=== PATIENT | male | born 1980 | race Caucasian/White ===

== ENCOUNTER 2021-07-18 18:59 | Emergency (ER) | payer OTHER ==
[~2021-07-18] VITALS: Ht 182.9 cm; Wt 86.0 kg
[2021-07-18 19:18] VITALS: BP 159/113
--- NOTE | 2021-07-18 20:10 | PHYS DOC ---
Past History Past Surgical History: No Surgical History General Adult EDM: Chief Complaint: MULTIPLE COMPLAINTS HPI: HPI: ".. I was out of service for a while.. and now I am back.. and not used to PT... I hurt all over...".. " I almost feel like I got the flu.. because I hurt all over.. because of all the PT" Patient is a 40 year old male who presents with above hx and complaints generalized myalgia and arthralgia from physical training. 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 Resumed his service on April 12. 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 Patient reports physical training has been more demanding on him and is not used to the workouts. Patient is up-to-date with his Covid vaccination as of 04/15/2001. Patient denies any recent trauma. Patient denies any significant ill contacts. Patient denies any history immunosuppression. . Review of Systems: Review of Systems: Constitutional: Denies fever or chills Eyes: Denies change in visual acuity HENT: Denies nasal congestion or sore throat Respiratory: Denies cough or shortness of breath Cardiovascular: Denies chest pain or edema GI: Denies abdominal pain, nausea, vomiting, bloody stools or diarrhea : Denies dysuria Musculoskeletal: Complains of generalized muscle soreness and joint discomfort Integument: Denies rash Neurologic: Denies headache, focal weakness or sensory changes Endocrine: Denies polyuria or polydipsia Lymphatic: Denies swollen glands Psychiatric: Denies depression or anxiety Family History: Family History: Noncontributory to presentation Current Medications: Current Meds: See nursing for home meds Allergies: Allergies: No known drug allergies Physical Exam: PE: Constitutional: Well developed, well nourished, moderate acute distress, non- toxic appearance. [] HENT: Normocephalic, atraumatic, bilateral external ears normal, oropharynx moist, no oral exudates, nose normal. [] Eyes: PERRLA, EOMI, conjunctiva normal, no discharge. [] Neck: Normal range of motion, no tenderness, supple, no stridor. [] Cardiovascular:Heart rate regular rhythm, no murmur [] Lungs & Thorax: Bilateral breath sounds equal apex on auscultation [] Abdomen: Bowel sounds normal, soft, no tenderness, no masses, no pulsatile masses. [] Skin: Warm, dry, no erythema, no rash. Tattoos Back: No tenderness, no CVA tenderness. [] Extremities: Generalized muscle tenderness, no cyanosis, no clubbing, ROM intact, no edema. No cording noted in legs. Neurologic: Alert and oriented X 3, normal motor function, normal sensory function, no focal deficits noted. [] Psychologic: Affect normal, judgement normal, mood normal. [] Current Patient Data: Labs: Note labs are not crossing over-my review of significant labs shows normal electrolytes. Normal CBC, mild elevation in ALT at 67. Negative COVID screen and flu screen. Normal troponin 0.017 Vital Signs: Vital Signs Date Time Temp Pulse Resp B/P (MAP) Pulse Ox O2 Delivery O2 Flow Rate FiO2 07/18/21 19:18 98.3 70 20 159/113 (128) 98 Room Air EKG: EKG: My interpretation EKG shows a sinus rhythm rate of 65. No acute morphology time of EKG is 2108 hrs. [] Radiology/Procedures: Radiology/Procedures: [] Heart Score: C/O Chest Pain: N/A HEART Score for Chest Pain: HEART Score for Chest Pain Response (Comments) Value History Slighlty/Non-Suspicious 0 ECG Normal 0 Age < 45 0 Risk Factors No Risk Factors 0 Troponin < Normal Limit 0 Total 0 Risk Factors: Risk Factors: DM, Current or recent (<one month) smoker, HTN, HLP, family history of CAD, obesity. Risk Scores: Score 0 - 3: 2.5% MACE over next 6 weeks - Discharge Home Score 4 - 6: 20.3% MACE over next 6 weeks - Admit for Clinical Observation Score 7 - 10: 72.7% MACE over next 6 weeks - Early Invasive Strategies Course & Med Decision Making: Course & Med Decision Making Pertinent Labs and Imaging studies reviewed. (See chart for details) Patient push fluids. Patient take Tylenol and ibuprofen for discomfort. Patient follow-up. Patient declined to produce urine for evaluation. Requesting discharge. Reported marked improvement in symptoms after fluid bolus. Patient to follow-up with Bri. Patient return with any concerns. Laying given until COVID test results are available to be reviewed. Patient to follow-up elevated blood pressure readings on this visit with primary care. Impression: 1. Generalized arthralgia myalgia secondary Over Use/decreased conditioning 2. Mild dehydration 3. Mild elevation of ALt 67 4. Elevated BP [] Dragon Disclaimer: Dragon Disclaimer: This electronic medical record was generated, in whole or in part, using a voice recognition dictation system. Departure Departure: Referrals: PCP,NO (PCP) Amparo Disclaimer This chart was dictated in whole or in part using Voice Recognition software in a busy, high-work load, and often noisy Emergency Department environment. It may contain unintended and wholly unrecognized errors or omissions. ANSHU KATZ MD Jul 18, 2021 20:10
[2021-07-18] MEDS ORDERED: IV RINGERS SOLUTION,LACTATED 1,000 ML IV SCH (21:15)
[2021-07-18] MEDS ORDERED: KETOROLAC 30 MG/ML VIAL. IVP ONE (21:15)
--- NOTE | 2021-07-18 21:27 | EKG ---
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
[2021-07-18 21:29] LABS: BASO % 1 % (0-3); EOS # 0.1 x10^3/uL (0.0-0.7); EOS % 1 % (0-3); HEMATOCRIT 43.2 % (39.0-53.0); HEMOGLOBIN 14.5 g/dL (13.0-17.5); LYMPH # 2.2 x10^3/uL (1.0-4.8); LYMPH % 32 % (24-48); MEAN CORPUSCULAR HEMOGLOBIN 32 pg (25-35); MEAN CORPUSCULAR HGB CONC 34 g/dL (31-37); MEAN CORPUSCULAR VOLUME 94 fL (79-100); MONO # 0.6 x10^3/uL (0.0-1.1); MONO % 9 % (0-9); NEUT # 3.9 x10^3uL (1.8-7.7); NEUT % 57 % (31-73); PLATELET COUNT 342 x10^3/uL (140-400); RED CELL DISTRIBUTION WIDTH 13.8 % (11.5-14.5); WHITE BLOOD COUNT 6.8 x10^3/uL (4.0-11.0)
[2021-07-18 21:36] LABS: GFR 83.6; POTASSIUM 3.6 mmol/L (3.5-5.1)
[2021-07-18 21:46] LABS: INFLUENZA A PATIENT NEGATIVE (NEGATIVE); INFLUENZA B PATIENT NEGATIVE (NEGATIVE)
[2021-07-18 21:47] LABS: DIRECT BILIRUBIN 0.1 mg/dL (0.0-0.2); MAGNESIUM 2.3 mg/dL (1.8-2.4); TOTAL BILIRUBIN 0.4 mg/dL (0.2-1.0); TOTAL PROTEIN 7.5 g/dL (6.4-8.2)
--- NOTE | 2021-07-19 08:51 | NUR ---
IP: Attempted to notify patient of negative COVID19 test result. Unable to leave voicemail message due to voicemail box not setup at this time.
--- NOTE | 2021-07-19 16:26 | NUR ---
IP: Patient notified of negative COVID19 test result. Verbalized understanding.
== END 2021-07-18 22:32 | disposition home or self-care (01) ==
LOC: ER 18:59
DX: E86.0 Dehydration (principal); R79.89 Other specified abnormal findings of blood chemistry; R03.0 Elevated blood-pressure reading, without diagnosis of hypertension; M79.10 Myalgia, unspecified site; M25.50 Pain in unspecified joint; Z20.822 Contact with and (suspected) exposure to COVID-19
CPT/HCPCS: 80048; 80076; 82550; 83735; 83880; 84484; 85025; 87804; 93005; 96361; 96374; 99284; C9803; J1885; J7120; U0003

== ENCOUNTER 2022-01-11 13:36 | Emergency (ER) | payer OTHER ==
[~2022-01-11] VITALS: Ht 182.9 cm; Wt 96.5 kg
[2022-01-11 13:40] VITALS: BP 163/92
--- NOTE | 2022-01-11 14:13 | RAD ---
Single view of the chest. 01/11/2022 1:59 PM Indication: Chest pain Comparison: None Findings: There is no focal consolidation. There is no pleural effusion or pneumothorax. The cardiome diastinal silhouette and pulmonary vasculature are within normal limits. No acute osseous abnormaliti es are seen. Impression: No evidence of acute cardiopulmonary process. Electronically signed by: Shayne Nova MD (01/11/2022 2:11 PM) [id number]
[2022-01-11 14:28] LABS: BASO % 0 % (0-3); EOS # 0.1 x10^3/uL (0.0-0.7); EOS % 2 % (0-3); HEMATOCRIT 40.4 % (39.0-53.0); HEMOGLOBIN 13.9 g/dL (13.0-17.5); LYMPH # 1.3 x10^3/uL (1.0-4.8); LYMPH % 31 % (24-48); MEAN CORPUSCULAR HEMOGLOBIN 31 pg (25-35); MEAN CORPUSCULAR HGB CONC 34 g/dL (31-37); MEAN CORPUSCULAR VOLUME 91 fL (79-100); MONO # 0.3 x10^3/uL (0.0-1.1); MONO % 7 % (0-9); NEUT # 2.6 x10^3uL (1.8-7.7); NEUT % 60 % (31-73); PLATELET COUNT 229 x10^3/uL (140-400); RED BLOOD COUNT 4.42 x10^6/uL (4.30-5.70); RED CELL DISTRIBUTION WIDTH 12.9 % (11.5-14.5); WHITE BLOOD COUNT 4.3 x10^3/uL (4.0-11.0)
[2022-01-11 14:37] LABS: CALCIUM 8.7 mg/dL (8.5-10.1); CREATININE 0.9 mg/dL (0.7-1.3); GFR 93.9; POTASSIUM 3.7 mmol/L (3.5-5.1)
[2022-01-11 14:39] LABS: BARBITURATES NEG (NEG); BENZODIAZEPINES NEG (NEG); CANNABINOIDS NEG (NEG); COCAINE NEG (NEG); METHADONE NEG (NEG); OPIATES NEG (NEG); PHENCYCLIDINE NEG (NEG)
[2022-01-11 14:43] LABS: ALBUMIN/GLOBULIN RATIO 1.3 (1.0-1.7); MAGNESIUM 2.1 mg/dL (1.8-2.4); TOTAL BILIRUBIN 0.6 mg/dL (0.2-1.0); TOTAL PROTEIN 7.1 g/dL (6.4-8.2)
--- NOTE | 2022-01-11 14:44 | PHYS DOC ---
Past History Past Medical History: No Pertinent History (NANI SEGOVIA) Past Surgical History: No Surgical History (NANI SEGOVIA) Smoking: Non-smoker, Quit Greater Than 1 Year Alcohol Use: None Drug Use: None (NANI SEGOVIA) General Adult EDM: Chief Complaint: CHEST PAIN HPI: HPI: Patient is a 41 year old male who presents with left-sided low chest/abdominal pain. 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 Patient states he has been working a lot recently and his superiors are "on his ass" about meeting recruitment quotas each quarter. Patient states it has been extremely difficult to sign up new recruits for the [employer] recently in light of social and political events. Recently, he had 1 day off in a period of 15 days. Patient was seen in urgent care just prior to presenting here in the emergency department. Between his urgent care visit and presenting here, he states he drank a [employer] energy drink. Patient is a former smoker, but has not had any tobacco-containing products or alcohol in several years. Patient denies other associated complaints including diaphoresis, lightheadedness, shortness of breath, cough, nausea/vomiting. (NANI SEGOVIA) Review of Systems: Review of Systems: Constitutional: Denies fever, chills or generalized weakness Eyes: Denies change in visual acuity, visual field deficits or discharge HENT: Denies ear pain, nasal congestion or sore throat Respiratory: Denies cough or shortness of breath Cardiovascular: See HPI GI: See HPI : Denies dysuria or hematuria Musculoskeletal: Denies back pain or joint pain Integument: Denies rash or other skin lesion Neurologic: Denies headache, focal weakness or sensory changes (NANI SEGOVIA) Allergies: Allergies: Allergies Coded Allergies Type Severity Reaction Last Updated Verified No Known Drug Allergies 01/11/22 No (NANI SEGOVIA) Physical Exam: PE: Constitutional: Well developed, well nourished, no acute distress, non-toxic appearance. HENT: Normocephalic, atraumatic, bilateral external ears normal, nose normal. Eyes: EOMI, conjunctiva normal, no discharge. Neck: Normal range of motion, no stridor. Cardiovascular: Heart regular rate and rhythm. No murmurs, rubs or gallops. Lungs & Thorax: Equal thoracic expansion, no chest wall tenderness or crepitus, bilateral breath sounds clear to auscultation. Skin: Warm, dry, no erythema, no rash. Extremities: No cyanosis, no clubbing, ROM intact, no edema. Neurologic: Alert and oriented x4, no focal deficits noted. (NANI SEGOVIA) EKG: EKG: EKG Interpreted by Dr. Peng at 1354: Regular rate and rhythm 81 bpm with no ectopic beats. QT 354 ms/QTc 416 ms. No STEMI. (NANI SEGOVIA) Radiology/Procedures: Radiology/Procedures: PROCEDURE: CHEST AP ONLY Single view of the chest. 01/11/2022 1:59 PM Indication: Chest pain Comparison: None Findings: There is no focal consolidation. There is no pleural effusion or pneumothorax. The cardiomediastinal silhouette and pulmonary vasculature are wit hin normal limits. No acute osseous abnormalities are seen. Impression: No evidence of acute cardiopulmonary process. Electronically signed by: Shayne Nova MD (01/11/2022 2:11 PM) [id number] (NANI SEGOVIA) Heart Score: C/O Chest Pain: Yes HEART Score for Chest Pain: HEART Score for Chest Pain Response (Comments) Value History Slighlty/Non-Suspicious 0 ECG Normal 0 Age < 45 0 Risk Factors No Risk Factors 0 Troponin < Normal Limit 0 Total 0 Risk Factors: Risk Factors: none Risk Scores: Score 0 - 3: 2.5% MACE over next 6 weeks - Discharge Home Score 4 - 6: 20.3% MACE over next 6 weeks - Admit for Clinical Observation Score 7 - 10: 72.7% MACE over next 6 weeks - Early Invasive Strategies (NANI SEGOVIA) Course & Med Decision Making: Course & Med Decision Making Pertinent Labs and Imaging studies reviewed. (See chart for details) Patient is a 41-year-old male recently experiencing long work hours and increased work-related stress who presents with left-sided low chest/upper abdominal pain. Work-up today will include labs, EKG, chest x-ray, urinalysis, urine drug screen. Work-up today is largely reassuring. Patient was reassured that there is no evidence of acute cardiac damage at this time. He is advised to take time off from work and take care of his mental health and stress levels to avoid similar symptoms in the future. Strict return precautions were provided. Patient understands and is agreeable to discharge plan. (NANI SEGOVIA) Amparo Disclaimer: Amparo Disclaimer: This electronic medical record was generated, in whole or in part, using a voice recognition dictation system. (NANI SEGOVIA) Attending Co-Sign The patient was seen and interviewed as well as examined at the bedside. The chart was reviewed. The case was discussed. Agree with the plan of care. (ALEX PENG DO) Departure Departure: Impression: Primary Impression: Work-related stress Additional Impression: Other physical and mental strain related to work Disposition: HOME / SELF CARE / HOMELESS Condition: STABLE Referrals: HARDIK GALEAS MD (PCP) Patient Instructions: Stress Management Additional Instructions: EMERGENCY DEPARTMENT GENERAL DISCHARGE INSTRUCTIONS Thank you for coming to [facility] (ED) today and trusting us with you care. We trust that you had a positive experience in our Emergency Department. If you wish to speak to the department management, you may call the director at [phone]. YOUR FOLLOW UP INSTRUCTIONS ARE FOLLOWS: 1. Follow up with your primary care doctor. If you do not have a primary doctor, please ask for a resource list of physicians or clinics that may be able to assist you with follow up care. 2. The emergency provider has interpreted your imaging studies, if any were ordered. The radiology data warehouse specialist also reviewed them. If there is a change in the findings, you will be notified in 48 hours when at all possible. 3. If a lab test or culture has been done, your results will be reviewed and you will be notified if you need a change in treatment. 4. Follow instructions verbalized to you and refer to the printouts if needed. ADDITIONAL INSTRUCTIONS AND INFORMATION: 1. Your care today has been supervised by a physician who is specially trained in emergency care. Many problems require more than one evaluation for a complet e diagnosis and treatment. We recommend that you schedule your follow up appointment as recommended to ensure complete treatment of you illness or injury. If you are unable to obtain follow up care and continue to have a problem, or if your condition worsens, we recommend that you return to the ED. 2. We are not able to safely determine your condition over the phone nor are we able to give sound medical advice over the phone. For these safety reasons, if you call for medical advice we will ask you to come to the ED for further evaluation. 3. If you have any questions regarding these discharge instructions please call the ED at [phone]. SAFETY INFORMATION: In the interest of safety, wellness, and injury prevention; we encourage you to wear your seat belt, if you smoke; quite smoking, and we encourage family to use a protective helmet for bicycling and other sporting events that present an increased risk for head injury. IF YOUR SYMPTOMS WORSEN OR NEW SYMPTOMS DEVELOP, OR YOU HAVE CONCERNS ABOUT YOUR CONDITION; OR IF YOUR CONDITION WORSENS WHILE YOU ARE WAITING FOR YOUR FOLLOW UP APPOINTMENT; EITHER CONTACT YOUR PRIMARY CARE DOCTOR, THE PHYSICIAN WHOSE NAME AND NUMBER YOU WERE GIVEN, OR RETURN TO THE ED IMMEDIATELY. NANI SEGOVIA Jan 11, 2022 14:43 ALEX PENG DO Jan 13, 2022 18:34
[2022-01-11 14:45] LABS: AMPHETAMINE/METHAMPHETAMINE NEG (NEG)
[2022-01-11 14:48] LABS: BACTERIA,URINE 0 /HPF (0-FEW); CLARITY,URINE CLEAR; COLOR,URINE YELLOW; GLUCOSE,URINE NEG (NEG); NITRITE,URINE NEG (NEG); RBC,URINE 0 /HPF (0-2); SQUAMOUS EPITHELIAL CELL,UR OCC /LPF; UROBILINOGEN,URINE 0.2 mg/dL (0.2 mg/dL); WBC,URINE 0 /HPF (0-4)
--- NOTE | 2022-01-11 16:31 | EKG ---
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
== END 2022-01-11 15:28 | disposition home or self-care (01) ==
LOC: ER 13:36
DX: Z56.6 Other physical and mental strain related to work (principal); Z87.891 Personal history of nicotine dependence
CPT/HCPCS: 36415; 71045; 80053; 80307; 81001; 83690; 83735; 84484; 85025; 93005; 99285